=== PATIENT | male | born 1970 | race Hispanic/Latino ===

== ENCOUNTER 2017-09-12 15:47 | Emergency (ER) | payer OTHER ==
[2017-09-12 16:05] VITALS: RESP 16; TEMP 98.2
--- NOTE | 2017-09-12 18:07 | ED PDOC ---
HPI: Abdomen Time Seen by Provider: 09/12/17 17:22 Chief Complaint (Nursing): GI Problem Chief Complaint (Provider): GI Problem History Per: Patient History/Exam Limitations: no limitations Onset/Duration Of Symptoms: Days (x5 days) Additional Complaint(s): 47 y/o male presents to the ED complaining of dizziness with some nausea, light headedness and vomiting since evening, 09/08/2017. Patient went to [facility] and was given Zofran and he was feeling better then. After he went home, dizziness started worsening and patient has a feeling of spinning . It worsens when he gets up and while lying when he turns his head to the left. He wnet to the doctor today and was advised to come to ED for further evaluation. Denies weakness, vision changes, blurry vision, unsteady gait, hearing loss, URI, or any further medical complaints. PMD: Ben Ferris MD Past Medical History Reviewed: Historical Data, Nursing Documentation, Vital Signs Vital Signs: Last Vital Signs Temp 98.2 F 09/12/17 15:59 Pulse 79 09/12/17 19:47 Resp 16 09/12/17 19:47 BP 136/91 H 09/12/17 19:47 Pulse Ox 96 09/12/17 19:54 - Medical History PMH: HTN Denies: Chronic Kidney Disease - Family History Family History: States: Unknown Family Hx - Social History Current smoker - smoking cessation education provided: No - Immunization History Hx Tetanus Toxoid Vaccination: No Hx Influenza Vaccination: Yes Hx Pneumococcal Vaccination: No - Home Medications Home Medications: Ambulatory Orders Medication Instructions Recorded Glipizide [Glipizide ER] 2.5 mg PO DAILY 09/09/17 MetFORMIN [glucoPHAGE] 1,000 mg PO BID 09/09/17 Margie-3 Fatty Acids/Fish Oil [Fish 1 cap PO QID 09/09/17 Oil 1,000 mg Capsule] Ondansetron [Zofran Odt] 4 mg PO Q8 PRN #15 odt 09/09/17 SITagliptin [Januvia] 100 mg PO DAILY 09/09/17 Simvastatin 20 mg PO DAILY 09/09/17 Meclizine HCl 50 mg PO BID PRN #30 tablet 09/12/17 - Allergies Allergies/Adverse Reactions: Allergies Allergy/AdvReac Type Severity Reaction Status Date / Time No Known Allergies Allergy Verified 09/09/17 01:40 Review of Systems ROS Statement: Except As Marked, All Systems Reviewed And Found Negative (As per HPI, otherwise negative) Eyes: Negative for: Vision Change ENT: Negative for: Other (hearing loss) Gastrointestinal: Positive for: Nausea, Vomiting Neurological: Positive for: Dizziness (and light headedness). Negative for: Weakness, Other (unsteady gait) Physical Exam - Reviewed Nursing Documentation Reviewed: Yes Vital Signs Reviewed: Yes - Physical Exam Appears: Positive for: Non-toxic, No Acute Distress Head Exam: Positive for: ATRAUMATIC, NORMOCEPHALIC Skin: Positive for: Warm, Dry Eye Exam: Positive for: EOMI, PERRL ENT: Positive for: Pharynx Is (clear), TM Is/Are (normal bilaterally) Neck: Positive for: Painless ROM, Supple Cardiovascular/Chest: Positive for: Regular Rate, Rhythm, Chest Non Tender. Negative for: Murmur Respiratory: Positive for: Normal Breath Sounds. Negative for: Wheezing Gastrointestinal/Abdominal: Positive for: Soft. Negative for: Tenderness Back: Positive for: Normal Inspection. Negative for: Decreased ROM Extremity: Positive for: Normal ROM. Negative for: Deformity Lymphatic: Negative for: Adenopathy Neurologic/Psych: Positive for: Alert, radiation control technician II-XII (intact), Oriented (x3), Cerebellar Tests (normal), Gait (normal), Other (Eunice Hallpike RIGHT to LEFT). Negative for: Aphasia, Facial Droop - Laboratory Results Result Diagrams: 09/12/17 18:42 09/12/17 18:42 - ECG ECG: Positive for: Interpreted By Me ECG Rhythm: Positive for: Normal QRS, Normal ST Segment, Sinus Rhythm O2 Sat by Pulse Oximetry: 96 (RA) Pulse Ox Interpretation: Normal Medical Decision Making Medical Decision Making: Time: 17:34 Initial Impression: Intractable vertigo Plan: CT head w/o contrast EKG CMP Troponin I Urine dipstick CBC w/ differential Partial Thromboplastin Time Prothrombin Time Antivery 50mg PO IV insertion ([place]) Glucose, blood, POC Reevalaution Time: 18:[address] FINDINGS: HEMORRHAGE: No intracranial hemorrhage. BRAIN: No mass effect or edema. No atrophy or chronic microvascular ischemic changes. VENTRICLES: Unremarkable. No hydrocephalus. CALVARIUM: Unremarkable. PARANASAL SINUSES: Unremarkable as visualized. No significant inflammatory changes. MASTOID AIR CELLS: Unremarkable as visualized. No inflammatory changes. OTHER FINDINGS: None. IMPRESSION: No acute intracranial abnormalities. No significant findings to account for the clinical presentation. Labs unremarkable. CHERY Ferris PMD. Meclizine and f/u by end of week in office. DW pt findings and plan of care Scribe Attestation: Documented by Tita Oliveros acting as a scribe for Alina Mccauley MD. Scribe Attestation: All medical record entries made by the Scribe were at my direction and personally dictated by me. I have reviewed the chart and agree that the record accurately reflects my personal performance of the history, physical exam, medical decision making, and the department course for this patient. I have also personally directed, reviewed, and agree with the discharge instructions and disposition. Disposition - Clinical Impression Clinical Impression: Vertigo Counseled Patient/Family Regarding: Studies Performed, Diagnosis, Need For Followup, Rx Given - Disposition Referrals: Ben Ferris MD [Family Provider] - (FOLLOW UP WITH DR FERRIS BY THE END OF THE WEEK) Disposition: Routine/Home Disposition Time: 20:13 Condition: IMPROVED Prescriptions: Meclizine HCl 50 mg PO BID PRN #30 tablet PRN Reason: Dizziness Instructions: Vertigo (ED) Forms: [facility] ED School/Work Excuse
--- NOTE | 2017-09-12 18:23 | CT ---
PROCEDURE: CT HEAD WITHOUT CONTRAST. HISTORY: intractable vertigo COMPARISON: None available. TECHNIQUE: Axial computed tomography images were obtained through the head/brain without intravenous contrast. Coronal and sagittal reconstructed images. Radiation dose: Total exam DLP = 825.41 mGy-cm. This CT exam was performed using one or more of the following dose reduction techniques: Automated exposure control, adjustment of the mA and/or kV according to patient size, and/or use of iterative reconstruction technique. FINDINGS: HEMORRHAGE: No intracranial hemorrhage. BRAIN: No mass effect or edema. No atrophy or chronic microvascular ischemic changes. VENTRICLES: Unremarkable. No hydrocephalus. CALVARIUM: Unremarkable. PARANASAL SINUSES: Unremarkable as visualized. No significant inflammatory changes. MASTOID AIR CELLS: Unremarkable as visualized. No inflammatory changes. OTHER FINDINGS: None. IMPRESSION: No acute intracranial abnormalities. No significant findings to account for the clinical presentation.
[2017-09-12 18:48] LABS: BASO % 0.3 % (0.0-2.0); EOS # 0.1 K/uL (0.0-0.7); EOS % 0.7 % (0.0-4.0); LYMPH # 3.1 K/uL (1.0-4.3); LYMPH % 34.6 % (20.0-40.0); MEAN CELL VOLUME 82.5 fl (80.0-94.0); MEAN CORPUSCULAR HEMOGLOBIN 27.8 pg (27.0-31.0); MEAN CORPUSCULAR HGB CONC 33.7 g/dL (33.0-37.0); MEAN PLATELET VOLUME 8.3 fl (7.2-11.7); MONO # 0.6 K/uL (0.0-0.8); MONO % 6.9 % (0.0-10.0); NEUT # 5.1 K/uL (1.8-7.0); NEUT % 57.5 % (50.0-75.0); NRBC % 0.1 % (0.0-0.0); RBC 5.75 Mil/uL (4.40-5.90); RED CELL DISTRIBUTION WIDTH 13.5 % (11.5-14.5); WHITE BLOOD COUNT 8.9 K/uL (4.8-10.8)
[2017-09-12 19:06] LABS: ALB/GLOB RATIO 1.1 (1.0-2.1); ALBUMIN 4.5 g/dL (3.5-5.0); ALT/SGPT 70 U/L (21-72); AST/SGOT 31 U/L (17-59); BLOOD UREA NITROGEN 9 mg/dl (9-20); CALCIUM 10.1 mg/dL (8.4-10.2); GFR AFRICAN-AMERICAN > 60; GFR NON-AFRICAN AMERICAN > 60
[2017-09-12 19:21] LABS: INR 1.1 (0.9-1.2); PARTIAL THROMBOPLASTIN TIME 31.7 Seconds (25.6-37.1); PROTHROMBIN TIME 11.7 Seconds (9.8-13.1)
[2017-09-12 19:48] VITALS: BP 136/91; PULSE 79
[2017-09-12 19:55] VITALS: O2SAT 96
--- NOTE | 2017-09-13 17:02 | CARD ---
APPROVED REPORT EKG Measurement Heart [id number] <Conclusion> Normal sinus rhythm Normal ECG
== END 2017-09-12 20:53 | disposition home or self-care (01) ==
LOC: H.ER 15:47
DX: R42 Dizziness and giddiness (principal); Z79.84 Long term (current) use of oral hypoglycemic drugs; I10 Essential (primary) hypertension